=== PATIENT | female | born 1960 | race Caucasian/White ===

== ENCOUNTER 2017-12-08 01:19 | Emergency (ER) | payer OTHER ==
[~2017-12-08] VITALS: Ht 162.6 cm; Wt 72.6 kg
--- NOTE | ~2017-12-08 | EKG ---
[address] [address] ELECTROCARDIOGRAM REPORT Name: MILAN JOY [facility] [id number] Admission: 12/08/17 Attend Phys: Discharge: 12/08/17 Date of : 60 Report #: [id number] THIS REPORT FOR: //name// [facility] ED Test Date: 2017-12-08 Test Time: 01:30:05 Pat Name: MILAN JOY Department: Room: Gender: F [employer]: MORRIS : 1960 Requested By: Sherry Beth Order Number: [id number] MD: Vlad Trejo Measurements Intervals [place] Rate: 76 P: 6 NH: 152 QRS: -10 QRSD: 89 T: 6 QT: 427 QTc: 481 Interpretive Statements Sinus rhythm Inferior infarct, old Compared to ECG 08/07/2013 20:33:03 Myocardial infarct finding now present Electronically Signed On 12-08-2017 8:01:13 CDT by Vlad Trejo [email or web address] <ELECTRONICALLY SIGNED> By: Vlad Trejo MD 12/08/17 0801 0130 Vlad Trejo MD /[email or web address]
[~2017-12-08 01:19] MED LIST: ASPIRIN EC81 M1 PO; LOPRESSOR25 PO
[2017-12-08] MEDS ORDERED: LISINOPRIL5 MG PO (01:35)
[2017-12-08 02:03] LABS: ABSOLUTE NEUTROPHILS 2.3 thou/uL (1.4-8.2); EOSINOPHILS 5.6 % (0.0-3.0); HEMOGLOBIN 13.1 gm/dL (12.0-15.0); LYMPHOCYTES 46.4 % (24.0-44.0); MCH 29.9 pg (26.0-34.0); MCHC 33.6 g/dL (28.0-37.0); MCV 88.9 fL (80.0-100.0); MONOCYTES 8.5 % (1.0-8.0); PLATELET COUNT 218 thou/uL (150-400); POLYS 38.5 % (36.0-66.0); RBC 4.39 mil/uL (4.20-5.00); RDW 13.6 % (10.5-14.5); WBC 6.1 thou/uL (4.0-11.0)
[2017-12-08 02:05] LABS: ANION GAP 9 mmol/L (7-16); BUN 26 mg/dL (7-18); CALCIUM 8.8 mg/dL (8.5-10.1); CHLORIDE 106 mmol/L (98-107); CO2 25 mmol/L (21-32); CREATININE 0.7 mg/dL (0.6-1.0); GLUCOSE 113 mg/dL (74-106); POTASSIUM 3.6 mmol/L (3.5-5.1); SODIUM 140 mmol/L (136-145)
[2017-12-08 02:14] LABS: TROPONIN-I < 0.04 ng/mL (<0.06)
[2017-12-08 04:47] VITALS: BP 123/82
== END 2017-12-08 04:48 | disposition home or self-care (01) ==
LOC: ER 01:19
PROVIDERS: Emergency Medicine
DX: I10 Essential (primary) hypertension (principal); R42 Dizziness and giddiness; R07.89 Other chest pain; F17.210 Nicotine dependence, cigarettes, uncomplicated; Z86.73 Personal history of transient ischemic attack (TIA), and cerebral infarction without residual deficits